=== PATIENT | male | born 1980 | race Caucasian/White ===

== ENCOUNTER 2020-09-08 09:46 | Emergency (ER) | payer BC ==
[2020-09-08] MEDS: Ondansetron 4 MG/2 ML SDV IV ONE (10:34)
[2020-09-08] MEDS: Sodium Chloride 0.9% 10 ML Syringe FLUSH PRN (10:34)
[2020-09-08] MEDS: HYDROmorphone 0.5 MG/0.5 ML Syringe IV ONE (10:36)
[2020-09-08 10:59] LABS: CHLORIDE,CL 101 mmol/L (98-107); SODIUM,NA 139 mmol/L (136-145)
[2020-09-08 11:06] LABS: ANION GAP 14.9 mmol/L (5-15)
--- NOTE | 2020-09-08 11:07 | EDM.PDOC ---
ED HPI GENERAL MEDICAL PROBLEM - General Chief Complaint: Abdominal Pain Stated Complaint: RT SIDE PAIN Time Seen by Provider: 09/08/20 09:55 Source of Information: Reports: Patient History Limitations: Reports: No Limitations - History of Present Illness INITIAL COMMENTS - FREE TEXT/NARRATIVE: Patient comes emergency department today with complaints of right lower lateral abdominal pain. For the past 2 days the patient has had kind of constant waxing and waning sharp shooting right lower quadrant pain that radiates to his back. He has had some nausea without vomiting. No hematuria dysuria or urinary frequency. He has not had a bowel movement in a couple of days but that is not uncommon for him. He does not feel bloated or distended. He has had no diarrhea. No chest pain no shortness of breath or difficulty breathing. No cough or congestion. No shortness of breath. No fever does complain of some subjective chills. Pain gets worse with movement and deep breath in the right lower quadrant. He has had no surgeries in his abdomen in the past. He cannot affiliated with eating or position changes otherwise. No Covid exposure no Covid symptoms. Abdomen Pain Score (Numeric/FACES): 8 - Related Data Allergies Allergy/AdvReac Type Severity Reaction Status Date / Time Abvgsuj-Ufa-Eum Reductase Allergy Liver Verified 09/08/20 09:52 Inhibitor Problems Social & Family History - Tobacco Use Tobacco Use Status *Q: Never Tobacco User ED ROS GENERAL - Review of Systems Review Of Systems: Comprehensive ROS is negative, except as noted in HPI. ED EXAM, GI/ABD - Physical Exam Exam: See Below Exam Limited By: No Limitations General Appearance: Alert, WD/WN, No Apparent Distress Eyes: Bilateral: EOMI Ears: Normal External Exam Nose: Normal Inspection, Normal Mucosa Throat/Mouth: Normal Inspection Head: Atraumatic, Normocephalic Neck: Normal Inspection, Supple, Non-Tender Respiratory/Chest: No Respiratory Distress, Lungs Clear, Normal Breath Sounds, No Accessory Muscle Use, Chest Non-Tender Cardiovascular: Normal Peripheral Pulses, Regular Rate, Rhythm GI/Abdominal Exam: Normal Bowel Sounds, Soft, Tender (He has tenderness to the right lower quadrant at McBurney's point. He also has a positive Piper sign. No peritoneal signs. No rigidity or rebound. Normal bowel sounds. Negative heel jar psoas and obturator.) (Male) Exam: Deferred Rectal (Males) Exam: Deferred Back Exam: Normal Inspection, Full Range of Motion. No: CVA Tenderness (L), CVA Tenderness (R) Extremities: Normal Inspection, Normal Range of Motion, Non-Tender, Normal Capillary Refill Neurological: Alert, Oriented, Normal Cognition, No Motor/Sensory Deficits Psychiatric: Normal Affect, Normal Mood Skin Exam: Warm, Dry, Intact, Normal Color, No Rash Course - Vital Signs Last Recorded V/S: Last Vital Signs Temp 97.7 F 09/08/20 13:31 Pulse 83 09/08/20 13:31 Resp 16 09/08/20 13:31 BP 116/74 09/08/20 13:31 Pulse Ox 92 L 09/08/20 13:31 - Orders/Labs/Meds Orders: Active Orders 24 hr Category Date Time Status Sodium Chloride 0.9% [Saline Flush] Med 09/08/20 10:14 Active 10 ml FLUSH ASDIRECTED PRN Peripheral IV Insertion Adult [OM.PC] Stat Oth 09/08/20 10:13 Ordered Medication Orders Sodium Chloride (Saline Flush) 10 ml FLUSH ASDIRECTED PRN PRN Reason: Keep Vein Open Last Admin: 09/08/20 10:34 Dose: 10 ml Documented by: [id number] Labs: Laboratory Tests 09/08/20 09/08/20 09/08/20 Range/Units 10:21 10:28 10:28 WBC 9.9 (4.0-10.0) x10^3/uL RBC 4.71 (4.5-6.0) x10^6/uL Hgb 14.3 (14.0-18.0) g/dL Hct 42.5 (40.0-52.0) % MCV 90.2 (78.0-93.0) fL MCH 30.4 (26.0-32.0) pg MCHC 33.6 (32.0-36.0) g/dL RDW Coeff of Jerry 12.4 (10.0-15.0) % Plt Count 203 (130-400) x10^3/uL Neut % (Auto) 59.2 (50.0-80.0) % Lymph % (Auto) 24.7 L (25.0-50.0) % [place] % (Auto) 12.4 H (2.0-11.0) % Eos % (Auto) 3.2 (0.0-4.0) % Baso % (Auto) 0.5 (0.2-1.2) % Sodium 139 (136-145) mmol/L Potassium 3.9 (3.5-5.1) mmol/L Chloride 101 (98-107) mmol/L Carbon Dioxide 27 (21-32) mmol/L Anion Gap 14.9 (5-15) mmol/L BUN 12 (7-18) mg/dL Creatinine 1.1 (0.70-1.30) mg/dL Est Cr Clr Drug Dosing 105.63 mL/min Estimated GFR (MDRD) > 60 Glucose 112 H (74-106) mg/dL Calcium 8.9 (8.5-10.1) mg/dL Corrected Calcium 9.14 (8.5-10.1) mg/dL Total Bilirubin 1.2 H (0.2-1.0) mg/dL AST 19 (15-37) U/L ALT 57 (16-63) U/L Alkaline Phosphatase 66 (46-116) U/L C-Reactive Protein 11.3 H (<=0.9) mg/dL Total Protein 8.0 (6.4-8.2) g/dL Albumin 3.7 (3.4-5.0) g/dL Globulin 4.3 Albumin/Globulin Ratio 0.86 Lipase 118 (73-393) U/L Urine Color Dark yellow H (YELLOW) Urine Appearance Clear (CLEAR) Urine pH 5.5 (5.0-8.0) Ur Specific [place] 1.025 Urine Protein 30 H (NEGATIVE) mg/dL Urine Glucose (UA) Negative (NEGATIVE) mg/dL Urine Ketones Negative (NEGATIVE) mg/dL Urine Occult Blood Negative (NEGATIVE) Urine Nitrite Negative (NEGATIVE) Urine Bilirubin Small H (NEGATIVE) Urine Urobilinogen 0.2 (0.2) EU/dL Ur Leukocyte Esterase Negative (NEGATIVE) Urine RBC 0-5 (NOT SEEN) /HPF Urine WBC 0-5 (NOT SEEN) /HPF Ur Squamous Epith Cells Rare (NEGATIVE) /HPF Urine Bacteria Not seen (NEGATIVE) /HPF Urine Mucus Many H (NEGATIVE) /LPF Meds: Medications Generic Name Dose Route Start Last Admin Trade Name Freq PRN Reason Stop Dose Admin Sodium Chloride 10 ml 09/08/20 10:14 09/08/20 10:34 Saline Flush FLUSH 10 ml ASDIRECTED PRN Administration Keep Vein Open Discontinued Medications Generic Name Dose Route Start Last Admin Trade Name Mahendra PRN Reason Stop Dose Admin Hydromorphone HCl 0.5 mg 09/08/20 10:14 09/08/20 10:36 Dilaudid IV 09/08/20 10:15 0.5 mg ONETIME ONE Administration Hydromorphone HCl 1 mg 09/08/20 12:46 09/08/20 12:56 Dilaudid IVPUSH 09/08/20 12:47 1 mg ONETIME ONE Administration Piperacillin Sod/Tazobactam 100 mls @ 200 mls/hr 09/08/20 12:59 09/08/20 13:30 Sod 3.375 gm/ Sodium Chloride IV 09/08/20 13:28 200 mls/hr STAT ONE Administration Ondansetron HCl 4 mg 09/08/20 10:14 09/08/20 10:34 Zofran IV 09/08/20 10:15 4 mg ONETIME ONE Administration - Radiology Interpretation Free Text/Narrative:: CT abdomen pelvis with contrast per radiology shows abnormal appearance of the gallbladder suggesting acute cholecystitis. Reactive change/fat stranding adjacent to the gallbladder. No radiographically evidence of calculi or ductal dilation. - Re-Assessments/Exams Free Text/Narrative Re-Assessment/Exam: 09/08/20 11:06 I attempted a POCUS ultrasound at the bedside and I was unable to identify the gallbladder. I think this is due to body habitus he is a rather large obese male. Liver appeared to be fatty. Right kidney was unremarkable. Abs are drawn. Zofran 4 mg IV push prophylactic nausea. Dilaudid 0.5 mg IV push. 09/08/20 11:15 Laboratory evaluation with a normal white blood cell count at 9.9. Mildly elevated glucose at 112, total bilirubin elevated at 1.2 with a normal AST at 19 and ALT at 57 and alkaline phosphatase of 66, Mild elevation of his CRP at 11.3. Lipase 118. Which is normal. POCUS US RUQ completed and reviewed extemporaneously by myself with no dilations of the gallbladder. No stones. Unable to see the duct. Olivia are at 0.9. Some stephanie-cystic fluid surrounding the gallbladder, ? Acute Kathy. CT abd pelvis with same concerns of acute kathy. Judy does not have an US tech so refused the patient. I called and spoke with Dr. Buenrostro in the ER at [facility] in [place]. HPI ER COURSE findings and concerns were relayed to him. Leoniesyn given as directed. He accepted the patient in transfer at this time to [facility] in [place]. NOthing to eat or drink and go directly to the ED. I discussed my findings and concerns with the patient. He is comfortable with this plan and his questions answered. We will leave the IV in place and he will have someone give him a ride to [facility] in [place]. Departure - Departure Time of Disposition: 12:59 Disposition: DC/Tfer to Acute Hospital 02 Clinical Impression: Acute cholecystitis - Discharge Information Referrals: Gale Diggs DO [Primary Care Provider] - Forms: ED Department Discharge, Interfacility Transfer EMTALA Additional Instructions: DO NOT EAT OR DRINK ANYTHING> Go directly from here to [facility] ER in [place] for further care management. Sepsis Event Note (ED) - Evaluation Sepsis Screening Result: No Definite Risk - Focused Exam Vital Signs: Vital Signs Temp Pulse Resp BP Pulse Ox 09/08/20 13:31 97.7 F 83 16 116/74 92 L 09/08/20 09:55 97.3 F 99 14 148/98 H 96 - My Orders Last 24 Hours: My Active Orders 09/08/20 10:13 Peripheral IV Insertion Adult [OM.PC] Stat 09/08/20 10:14 Sodium Chloride 0.9% [Saline Flush] 10 ml FLUSH ASDIRECTED PRN - Assessment/Plan Last 24 Hours: My Active Orders 09/08/20 10:13 Peripheral IV Insertion Adult [OM.PC] Stat 09/08/20 10:14 Sodium Chloride 0.9% [Saline Flush] 10 ml FLUSH ASDIRECTED PRN
--- NOTE | 2020-09-08 12:38 | CT ---
[id number] CT/CT Abdomen Pelvis W IV EXAM: CT Abdomen Pelvis W IV CLINICAL DATA: TENDERNESS MCBURNEY'S, BUT ALSO RIGHT UPPER QUADRANT. COMPARISON STUDY: CT from October 13, 2016. FINDINGS: Mild scarring in the lung bases. Hepatomegaly and diffuse steatosis. No focal lesion or biliary ductal dilation. Reactive change/fat stranding adjacent to the gallbladder. No radiographically evident calculi or ductal dilation. Pancreas, spleen, adrenal glands, and kidneys are unremarkable. No small bowel obstruction or inflammation. No colitis or diverticulitis. Appendix is normal. No abscess. No lymphadenopathy in the abdomen or pelvis. Urinary bladder is unremarkable. Spondylosis, including moderate to advanced L4-5 and L5-S1 degenerative disc disease. Bilateral femoroacetabular osteoarthritis. IMPRESSION: Abnormal appearance of the gallbladder suggesting acute cholecystitis. However no radiographically evident cholelithiasis or ductal dilation. Correlate with LFTs. Hepatomegaly and diffuse hepatic steatosis. Negative for appendicitis. Other findings are described above. Andres Laureano MD 09/08/20 [id number] Thank you for allowing us to participate in the care of your patient.
[2020-09-08] MEDS: HYDROmorphone 1 MG/ML Syringe IVPUSH ONE (12:56)
[2020-09-08] MEDS: Piperacillin/Tazobactam 3.375 GM in Sodium Chloride 0.9% 100 ML IV ONE (13:30)
== END 2020-09-08 14:15 | disposition short-term general hospital (02) ==
LOC: VM.ED 09:46
DX: K81.0 Acute cholecystitis (principal); Z88.8 Allergy status to other drugs, medicaments and biological substances
CPT/HCPCS: 36415; 74177; 80053; 81001; 83690; 85025; 86140; 96365; 96375; 96376; 99284; 99285-25; J1170; J2405; J2543